=== PATIENT | female | born 1970 | race Hispanic/Latino ===

== ENCOUNTER 2020-07-17 00:58 | Emergency (ER) | payer SELFPAY ==
[2020-07-17] MEDS ORDERED: Ibuprofen 600 MG TAB ONE (01:19)
[2020-07-17] MEDS ORDERED: Sodium Chloride 0.9% 1,000 ML ONE (01:39)
[2020-07-17] MEDS ORDERED: cefTRIAXone\\ROCEPHIN 2 GM VIAL ONE (01:39)
[2020-07-17] MEDS ORDERED: Sodium Chloride 0.9% 100 ML ONE (01:39)
[2020-07-17 01:58] LABS: Bilirubin Negative (Negative); Blood, Urine Trace (Negative); Clarity Clear (Clear); Glucose, Urine (Dipstick) Negative (Negative); Ketone, Urine Negative (Negative); Leukocyte Trace (Negative); Nitrite Negative (Negative); Protein, Urine (Dipstick) Negative (Neg-Trace); Urobilinogen 0.2 mg/dL (Less than 2)
[2020-07-17 01:59] LABS: Bacteria/HPF 3+ HPF (None Seen); Squamous Epithelial 0-3 HPF (0-3); WBC/HPF 0-3 HPF (0-3)
[2020-07-17 02:01] LABS: BHCG - Serum Negative (NEGATIVE); Pregs Control Background? CLEAR/WHITE (CLR/WHITE); Pregs Control Bar Appear? YES (CONTROL BAR)
[2020-07-17 02:04] LABS: Anion Gap 16 mmol/L (10-20); BUN (Urea Nitrogen) 12 mg/dL (7.0-18.7); Calc. Creatinine Clearance 0 mL/min (70-130); Calcium 9.2 mg/dL (7.8-10.44); Carbon Dioxide 24 mmol/L (22-29); Chloride 104 mmol/L (98-107); Glucose 118 mg/dL (70-105); Potassium 3.9 mmol/L (3.5-5.1); Sodium 140 mmol/L (136-145)
[2020-07-17 02:12] LABS: Band 8 % (5-11); Giant Platelets SLIGHT; Large Platelets SLIGHT; Lymphocytes 11 % (21-51); MDiff Complete? YES; Mean Corpuscular Hemoglobin 31.9 pg (27.0-31.0); Mean Corpuscular Volume 99.7 fL (78.0-98.0); Mean Platelet Volume 10.6 fL (7.4-10.4); Monocytes 2 % (0-10); Neutrophil 79 % (42-75); Platelet Count 232 thou/uL (130-400); Platelet Morphology Comment Appears Adequate; RBC Distribution Width 11.9 % (11.5-14.5); RBC Morphology Normal; Red Blood Cell (RBC) Count 4.08 mill/uL (4.20-5.40); White Blood Cell (WBC) Count 13.6 thou/uL (4.8-10.8)
== END 2020-07-17 03:59 | disposition home or self-care (01) ==
LOC: MADERS 00:58
DX: L03.113 Cellulitis of right upper limb (principal)
CPT/HCPCS: 36415; 71046; 80048; 81003; 81015; 83605; 84703; 85025; 87040; 94760; 96365; J0696; J3490; J7050

== ENCOUNTER 2020-08-03 07:31 | Emergency (ER) | payer SELFPAY | END 2020-08-03 08:22 | disposition home or self-care (01) | LOC: MADERS 07:31 | DX: K04.7 Periapical abscess without sinus (principal); K03.81 Cracked tooth; K02.9 Dental caries, unspecified | CPT/HCPCS: 99283 ==

== ENCOUNTER 2021-03-22 15:33 | Emergency (ER) | payer SELFPAY ==
[2021-03-22] MEDS ORDERED: Ibuprofen 800 MG TAB ONE (16:10)
[2021-03-22] MEDS ORDERED: Ciprofloxacin 500 MG TAB ONE (16:21)
[2021-03-22] MEDS ORDERED: NEOMYCIN-POLYMYXIN-HC EAR SUSP 200 DROP/10 ML BOT ONE (16:21)
== END 2021-03-22 18:18 | disposition home or self-care (01) ==
LOC: MADERS 15:33
DX: H60.22 Malignant otitis externa, left ear (principal); H66.92 Otitis media, unspecified, left ear; F17.210 Nicotine dependence, cigarettes, uncomplicated
CPT/HCPCS: 70450; 70486